=== PATIENT | female | born 1995 | race Hispanic/Latino ===

== ENCOUNTER 2017-01-20 16:40 | Observation (INO) | payer OTHER ==
[~2017-01-20] VITALS: Ht 154.9 cm; Wt 76.1 kg
[~2017-01-20 16:40] MED LIST: PREN-107 PO
[2017-01-20 16:45] VITALS: BP 101/68; PULSE 77; RESP 20; O2SAT 99
[2017-01-20 17:24] LABS: BASOPHILS % (AUTO) 0.3 % (0-3); EOSINOPHILS % (AUTO) 0.3 % (0-5); MONOCYTES % (AUTO) 4.2 % (4-12); Mean Corpuscular Hemoglobin 28.8 pg (27.0-35.0); Mean Corpuscular Volume 86.3 fL (81-100); NEUTROPHILS % (AUTO) 82.3 % (40-74); Platelet Count 283 bil/L (150-400)
[2017-01-20 17:46] LABS: Magnesium 1.8 mg/dL (1.6-2.6)
--- NOTE | 2017-01-20 18:26 | ED.REPORT ---
HPI-Abd Pain F Under 40 Date of Service January 20, 2017 ED Provider: Bradly Saxena DO Patient is a 21 year old female who presents to the ED complaining of diffuse abdominal pain onset last night. Associated symptoms include pain that radiates into her back,nausea, vomiting and diarrhea that has since resolved. She denies . The patient reports that her periods have been irregular, with her last menstrual cycle on 12/18/16 but this pain is worse than her usual cramps. Nursing Notes Stated Complaint: ABDOMINAL PAIN Chief Complaint: Female Abdominal Pain Nursing Notes Reviewed: Yes Allergies: Coded Allergies: No Known Allergies (Unverified Allergy, Unknown, 02/10/14) Miscellaneous Medications ([none]) VIT37/IRON/FOLIC ACID-Expunged Drug, (PRENATA-Expunged Drug, Do Not Renew!) 1 Each Tab.chew 1 EACH PO General Time Seen by MD: 18:25 Chief Complaint Abdominal pain Hx Obtained From: Patient Arrived By: Walk-in Sudden in Onset?: Yes Onset Occurred: Yesterday Symptom Duration: Since onset Location: : Diffuse Radiation: : Back Associated with: Reports: Diarrhea, Nausea, Vomiting Recent Healthcare: No recent doctor visit, No recent hospitalization Past Medical History Past Medical History none reported Past Surgical History none reported Smoking History Never Smoker Social History Alcohol Use: Denies alcohol use Drug Use: Denies drug use Other Social History: Good social support Ambulatory Status Independent Review of Systems Respiratory: Denies: Non-productive cough, Shortness of breath GI: Reports: Abdominal pain, Diarrhea, Nausea, Vomiting Musculoskeletal: Reports: Back pain Complete sys rev & neg: except as marked. Physical Exam Initial Vital Signs Vital Signs (First) Date Time Temp Pulse Resp B/P Pulse Ox O2 Delivery O2 Flow Rate FiO2 01/20/17 16:45 37.2 77 20 101/68 99 Room Air Initial VS: Reviewed General/Constitutional: Awake, Alert Distress / Hydration: Positive: Distress moderate Respiratory / Chest: Atraumatic, Breath sounds NL, Breath sounds = bilat, No respiratory distress Cardiovascular: Heart rate NL, Regular rhythm, Heart sounds NL Abdomen: Atraumatic, Soft Tenderness/Guarding/Rebound: Positive: Tender LUQ..., Tender RUQ... Back: Atraumatic, Full range of motion Head / Eyes: Atraumatic, Normocephalic, PERRL, EOMI Skin: Atraumatic, Color NL, No rash, Warm, Dry Neurologic: Oriented X3, Speech NL, No motor deficits, No sensory deficits Psychiatric: Affect NL, Mood NL Interpretation & Diagnostics Interpretation & Diagnostics: ABDOMEN ULTRASOUND: IMPRESSION: 1. No cholelithiasis or cholecystitis. Dictated by: Sukhdev Seay M.D. on 01/20/2017 at 20:08 Approved by: Sukhdev Seay M.D. on 01/20/2017 at 20:13 Lab Results Interpretation Result Diagram: 01/20/17 1705 01/20/17 1705 Test 01/20/17 17:05 01/20/17 19:30 White Blood Count 15.0th/mm3 (3.8-10.1) Red Blood Count 4.59mil/mm3 (3.90-5.20) Hemoglobin 13.2g/dL (12.0-15.6) Hematocrit 39.6% (35.0-46.0) Mean Corpuscular Volume 86.3fL (81-100) Mean Corpuscular Hemoglobin 28.8pg (27.0-35.0) Mean Corpuscular Hemoglobin Concent 33.3% (32.0-37.0) Red Cell Distribution Width 13.3% (12.3-15.4) Platelet Count 283bil/L (150-400) Neutrophils (%) (Auto) 82.3% (40-74) Lymphocytes (%) (Auto) 12.6% (14-46) Monocytes (%) (Auto) 4.2% (4-12) Eosinophils (%) (Auto) 0.3% (0-5) Basophils (%) (Auto) 0.3% (0-3) Sodium Level 137mEq/L (134-144) Potassium Level 3.8mEq/L (3.5-5.2) Chloride Level 99mEq/L (97-108) Carbon Dioxide Level 22mmol/L (18-29) Blood Urea Nitrogen 13mg/dL (6-20) Creatinine 0.55mg/dL (0.57-1.00) Estimat Glomerular Filtration Rate 198mL/min (>59) Glucose Level 108mg/dL (60-99) Calcium Level 9.4mg/dL (8.5-10.1) Magnesium Level 1.8mg/dL (1.6-2.6) Total Bilirubin 0.3mg/dL (0.0-1.2) Aspartate Amino Transf (AST/SGOT) 20U/L (0-50) Alanine Aminotransferase (ALT/SGPT) 19U/L (0-32) Alkaline Phosphatase 78U/L (25-150) Total Protein 8.3g/dL (6.4-8.4) Albumin 4.2g/dL (3.4-5.0) Lipase 20U/L (13-60) Hold Francois Top Tube Received (Received) Urine Color Yellow (YELLOW) Urine Appearance Hazy (CLEAR,HAZY) Urine pH 6.5 (5.0-8.0) Urine Specific [place] 1.025 (1.003-1.035) Urine Protein Tracemg/dL (NEG,TRACE) Urine Glucose (UA) Negativemg/dL (NEGATIVE) Urine Ketones Negativemg/dL (NEGATIVE) Urine Occult Blood Negative (NEGATIVE) Urine Nitrite Negative (NEGATIVE) Urine Bilirubin Negative (NEGATIVE) Urine Urobilinogen Normalmg/dL (NORMAL) Urine Leukocyte Esterase Trace (NEGATIVE) Urine RBC 0-2/hpf (0-2) Urine WBC 0-5/hpf (0-5) Urine Epithelial Cells Few/hpf (NONE-MOD) Urine Crystals None seen (NONE SEEN) Urine Bacteria Few/hpf (NONE-FEW) Urine Hyaline Casts None/lpf (NONE) Urine Granular Casts None seen (NONE SEEN) Urine Waxy Casts None seen (NONE SEEN) Urine Red Blood Cell Casts None seen (NONE SEEN) Urine White Blood Cell Casts None seen (NONE SEEN) Urine Mucus None seen (None Seen) Urine Trichomonas None seen (NONE SEEN) Urine Yeast None (NONE SEEN) Urinalysis Comment None Urine Culture Reflexed Indicated CT Abd / Pelvis Interpretation IMPRESSION: 1. Acute appendicitis without definite evidence of perforation. Findings discussed with Dr. Saxena on 01/20/17 at 9:40 PM. 2. Small amount of free fluid in the pelvic cul-de-sac appears within physiologic limits. Dictated by: Sukhdev Seya M.D. on 01/20/2017 at 21:37 Approved by: Sukhdev Seay M.D. on 01/20/2017 at 21:43 Interpretation / Wet Read by: Interpret - Radiologist Re-Eval/Medical Decision Med Decision/Clinical Course Med Decision/Clinical Course: Patient has been vomiting, resolved diarrhea, no fever and no chest symptoms. CT showed clear signs of acute appendicitis. Re-Evaluation/Progress : Time of Eval: 21:44 Re-Evaluation/Progress Note: Discussed CT results and plan for admit. The patient understands and agrees to the plan for admit. All questions were addressed. Consultation : Referral / Consult Name: Reji Kelley MD Consulted With: Surgeon Call Returned at: 21:48 Wire Stitcher: Will see patient, Agrees with eval, Agrees with plan, Accepts admit Counseled Regarding: Diagnosis, Lab results, Need for admission Discharge & Departure Primary Impression: Acute appendicitis Acute appendicitis type: unspecified acute appendicitis type Qualified Code: K35.80 - Unspecified acute appendicitis Disposition: ADMITTED TO HOSPITAL Discharge Condition All VS Reviewed: Yes Condition: Stable Referrals: Sharon Strong PA-C (PCP) Nadeem Attestation Portions of this note were transcribed by Annika Issa. I, Dr. Saxena personally performed the history, physical exam and medical decision-making; I reviewed and confirmed the accuracy of the information in the transcribed note. Signed by: Nadeem Lang, 01/20/17 and 2150 copies to: Sharon Strong PA-C, Todd P DO January 20, 2017 18:26 Margaret Issa January 20, 2017 18:56
[2017-01-20] MEDS ORDERED: 0.9% Sodium Chloride 1,000 ML IV ONE (19:25)
[2017-01-20] MEDS ORDERED: HYDROmorphone 1 mg/mL Inj IVPUSH PRN (19:25)
[2017-01-20] MEDS ORDERED: Ondansetron 2 mg/mL 2 mL Inj IVPUSH PRN (19:25)
[2017-01-20 19:47] LABS: APPEARANCE,URINE HAZY (CLEAR,HAZY); COLOR,URINE YELLOW (YELLOW); PH,URINE 6.5 (5.0-8.0)
[2017-01-20 19:48] LABS: OCCULT BLOOD,URINE NEGATIVE (NEGATIVE); UROBILINOGEN,URINE NORMAL (NORMAL)
[2017-01-20] MEDS ORDERED: Iohexol 300 mg/mL 30 mL Inj PO ONE (19:55)
--- NOTE | 2017-01-20 20:14 | DRSVH ---
PROCEDURE: US ABDOMEN, LIMITED ([id number]) INDICATIONS: ruq and luq pain, vomiting TECHNIQUE: Real-time focused scanning was performed of the gallbladder, with image documentation. COMPARISON: None. FINDINGS: No gallstones, gallbladder wall thickening, or pericholecystic fluid. No intrahepatic biliary ductal dilatation. Common bile duct is normal in caliber measuring up to 2 mm. IMPRESSION: 1. No cholelithiasis or cholecystitis. Dictated by: Sukhdev Seay M.D. on 01/20/2017 at 20:08 Approved by: Sukhdev Seay M.D. on 01/20/2017 at 20:13
--- NOTE | 2017-01-20 21:45 | DRSVH ---
PROCEDURE: CT ABDOMEN AND PELVIS WITH CONTRAST ([id number]) INDICATIONS: abdominal pain, leukocytosis, negative US TECHNIQUE: After the administration of oral and intravenous contrast, 5 mm thick sections acquired from the diap hragms to the symphysis. 5 mm thick coronal and sagittal reformats were performed. For radiation do se reduction, the following was used: automated exposure control, adjustment of mA and/or kV accordi ng to patient size. COMPARISON: [facility], , [facility], 01/20/2017, 19:42. FINDINGS: Image quality: Excellent. ABDOMEN: Lung bases: There is mild dependent atelectasis. Heart size is normal. Solid organs: Liver and spleen are normal in size and enhancement. Gallbladder is within normal ivey its without gallstones. Biliary system is non-dilated. Pancreas enhances normally. No adrenal nodu les. Kidneys are normal in size and enhancement, without hydronephrosis. Peritoneum and bowel: Stomach, small bowel, and colon loops are normal in caliber and wall thickness . The appendix is distended, measuring up to 1.3 cm with wall thickening and periappendiceal fat str anding consistent with acute appendicitis. No appendicolith. No periappendiceal free fluid, loculat ed fluid collections or free air. There is a small amount of free fluid in the pelvic cul-de-sac whi ch appears within physiologic limits. The colon is nondistended distally from the level of the mid t ransverse colon to the rectum. Nodes and vessels: No retroperitoneal or mesenteric adenopathy. Aorta and inferior vena cava are no rmal in caliber. Miscellaneous: No ventral hernias. PELVIS: Genitourinary: Bladder wall thickness is normal. The uterus and ovaries appear within normal size l imits for age. Miscellaneous: No inguinal hernias or adenopathy. Bones: No suspicious bony lesions. No vertebral body compression fractures. IMPRESSION: 1. Acute appendicitis without definite evidence of perforation. Findings discussed with Dr. Saxena on 01/20/17 at 9:40 PM. 2. Small amount of free fluid in the pelvic cul-de-sac appears within physiologic limits. Dictated by: Sukhdev Seay M.D. on 01/20/2017 at 21:37 Approved by: Sukhdev Seay M.D. on 01/20/2017 at 21:43
[2017-01-20] MEDS ORDERED: Piperacillin-Tazo 3.375 Gm Inj 3.375 GM in Dextrose 5% Minibag Plus 50 ML IV ONE (21:50)
[2017-01-20 22:05] VITALS: BP 101/54; PULSE 71; RESP 16; O2SAT 99
[2017-01-20 23:18] VITALS: BP 101/54; PULSE 71; RESP 16; O2SAT 99
--- NOTE | 2017-01-20 23:27 | NUR ---
Admit to [facility] Admit from ED. Arrived to floor via stretcher, able to self-transfer to bed w/ no problem. Alert/oriented, pleasant and cooperative. oriented to room, call light, and plan. reports 4/10 RUQ pain that occassionally radiates down to RLQ. States this pain is tolerable, declined offer of pain medication. L wrist PIV patent, SL. Tolerating RA, denies SOB/dyspnea. LS slightly decreased w/ fine crackles in bases. Skin is warm and dry. Afebrile. VSS. NPO at this time, plan for appendectomy in AM. CTM for changes.
[2017-01-20 23:47] VITALS: BP 99/59; PULSE 67; RESP 16; O2SAT 98
[2017-01-21] VITALS (7 sets, daily range): BP systolic 91–121; BP diastolic 51–75; PULSE 68–79; RESP 16–22; O2SAT 98–100
[2017-01-21] MEDS ORDERED: Piperacillin-Tazo 3.375 Gm Inj 3.375 GM in Dextrose 5% Minibag Plus 50 ML IV SCH (06:00)
--- NOTE | 2017-01-21 09:06 | HP ---
[address] [address] HISTORY AND PHYSICAL PATIENT: ALONDRA ANGEL : 1995 MR#: [id number] ADMIT: 01/20/2017 JOB ID: [id number] CHIEF COMPLAINT: Appendicitis. HISTORY OF PRESENT ILLNESS: The patient is a 21-year-old female, who presented to the emergency department this evening due to abdominal pain. The patient states that her pain actually started yesterday evening. It was in the epigastric location. It felt like cramps. She thought maybe she was about to have her period. She was able to get some sleep but starting at noon today it started to get worse. Again, it was felt to be in the epigastric location, and also in her back. She had nausea and vomiting today. She denies any fever but she did have some chills and she did have some loose diarrhea today. She last ate chicken and broth around 4 p.m. this afternoon. Workup in the emergency department tonight included a CBC that showed an elevated white blood count of 15, and abdominal ultrasound that shows a normal gallbladder, and then this is followed by a CT scan that showed acute appendicitis without definite perforation. The appendix was measured 1.3 cm with wall thickening and periappendiceal fat stranding. No appendicolith. I was consulted by the ED physician for evaluation. PAST MEDICAL HISTORY: None. MEDICATIONS: None. ALLERGIES: None. SOCIAL HISTORY: The patient lives in [place]. She is not . She has two daughters. She does not drink or smoke. 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 FAMILY HISTORY: Positive for diabetes and no appendicitis. REVIEW OF SYSTEMS: Positive for chills, epigastric abdominal pain, nausea, vomiting and loose diarrhea today. The patient also reports to having irregular menstrual periods. All other systems reviewed were negative. PHYSICAL EXAMINATION: The patient is currently in the emergency department [facility], in no acute distress. Her BMI is 30.3. The patient is [place]-speaking. Head is normocephalic, atraumatic. There is no scleral icterus. Neck is supple. Heart is regular rate. Lungs are clear. Abdomen is slightly obese. The patient points to the supraumbilical location as the site of her discomfort. However, on palpation, it is mildly tender in the supraumbilical location, also extending to the right lower quadrant. There is no rebound. There is no guarding. Extremities shows no clubbing and no cyanosis. Neurologically, the patient is awake, alert, answers questions, and she is appropriate for her age. LABORATORY EXAMINATION: Tonight showed a white blood count of 15, hematocrit of 39.6, platelet count is 283. Sodium is 137, potassium 3.8, creatinine 0.55, lipase of 20. Her urine is negative. An abdominal ultrasound shows no gallstones or cholecystitis. A CT scan tonight shows acute appendicitis without perforation. ASSESSMENT: This is a 21-year-old female with acute appendicitis. The patient last had chicken and broth around 4 p.m. Discussion was made with the on-call anesthesiologist, who was currently busy working on a GI case in the endoscopy suite, and he recommends that we wait 8 hours before going to surgery. Therefore, I will start her on IV antibiotics and recommend that she undergoes laparoscopic appendectomy tomorrow. This was explained to the patient, and the patient understands and agrees.
--- NOTE | 2017-01-21 09:23 | PCM.PNSURG ---
Subjective Date of Service: January 21, 2017 Date of Service: January 21, 2017 Visit Information: Reason for Visit Appendicitis Surgery/Surgery Date Post-Op Day # Date of Admission: January 20, 2017 at 22:08 Hospital Day # Subjective: Pain has gotten a little better, has not needed pain medication today . Located primarily in the RLQ, radiates to the LLQ. States some nausea. Remains NPO. WBC from admit 15, remains afebrile Objective Vital Sign- Last 8 Hours Date Time Temp Pulse Resp B/P Pulse Ox O2 Delivery O2 Flow Rate FiO2 01/21/17 05:41 36.7 71 16 95/56 100 Room Air Intake and Output- Last 8 Hour 01/21/17 Cumulative From/Thru 07:00 01/20/17 16:45 - 01/21/17 06:02 Intake Total 0 ml 1000 ml Output Total 400 ml 400 ml Balance -400 ml 600 ml Intake Oral 0 ml 0 ml IV Total 1000 ml Output Urine Total 400 ml 400 ml # Bowel Movements 0 0 General: Alert, Oriented X3, Cooperative, No Acute Distress Lungs: Clear to Auscultation, Normal Air Movement Heart: Exam Unremarkable, Regular Rate/Rhythm Abdomen: Soft (Tender to palpation RLQ and LLQ. No ridgidity, no guarding, no masses.) Result Diagram: 01/20/17 1705 01/20/17 170 Diagnostics: . US ABDOMEN, LIMITED IMPRESSION: 1. No cholelithiasis or cholecystitis. Dictated by: Sukhdev Seay M.D. on 01/20/2017 at 20:08 CT ABDOMEN AND PELVIS WITH CONTRAST IMPRESSION: 1. Acute appendicitis without definite evidence of perforation. Findings discussed with Dr. Saxena on 01/20/17 at 9:40 PM. 2. Small amount of free fluid in the pelvic cul-de-sac appears within physiologic limits. Dictated by: Sukhdev Seay M.D. on 01/20/2017 at 21:37 Additional Information: WBC from admit 15. Assessment & Plan Impression Assessment and Plan: 1. Acute appendicitis - Plan for laparoscopic appendectomy today - Remains NPO - Continue IV antibiotics - Continue Zofran Problems: Attending Statement: I agree with Dr. Arita's assessment and plan. Surgery today by Dr. Martinez. SOFIA ARIAT DO January 21, 2017 09:11 Reji Kelley MD January 23, 2017 16:05
[2017-01-21] MEDS ORDERED: Ondansetron 2 mg/mL 2 mL Inj IVPUSH PRN ×3 (11:45→15:10)
[2017-01-21] MEDS ORDERED: Alum-Mag Hydrox-Simeth 30 mL Suspension PO PRN (11:45)
[2017-01-21] MEDS ORDERED: Polyethylene Glycol (PEG) 17 Gm Powder PO PRN (11:45)
[2017-01-21] MEDS ORDERED: fentaNYL-PF 50 mCg/mL 2 mL Inj ONE (11:49)
[2017-01-21] MEDS ORDERED: Glycopyrrolate 0.2 MG/ML 1mL Inj ONE (11:49)
[2017-01-21] MEDS ORDERED: MetoCLOpramide 5 mg/mL 2 mL Inj ONE (11:49)
[2017-01-21] MEDS ORDERED: Ondansetron 2 mg/mL 2 mL Inj ONE (11:49)
[2017-01-21] MEDS ORDERED: Neostigmine 1 mg/mL 10 mL Inj ONE (11:49)
[2017-01-21] MEDS ORDERED: Dexamethasone 4 mg/mL Inj ONE (11:49)
[2017-01-21] MEDS ORDERED: Propofol 10,000 mCg/mL 20 mL Inj ONE (11:49)
[2017-01-21] MEDS ORDERED: Succinylcholine Chloride 20 mg/mL 5 mL Inj ONE (11:49)
--- NOTE | 2017-01-21 11:56 | NUR ---
UrinePregnancy NEG Double checked that pt not currently - test performed, NEG. Awaiting surgery.
--- NOTE | 2017-01-21 13:27 | NUR ---
Off Unit to OR Pt off unit to OR via carmenza at 1327. Report given to Delphine prior to pt pickup. A&Angie3, FRANCO, VSS, Pain tolerable, IV SL, SCDs with patient, Void prior to leaving, Jewelry left behind in pt room. Urine NEG, Consent signed, Chart with pt. Addendum: 01/21/17 at 1637 by GEORGE ADORNO RN Return to [facility] Unit, 1016, from PACU at 1625. Arrived via carmenza, Tonia&Angie3 - groranjany, pain present, pt up to BR, IV patent and infusing remaining Zosyn, Offered clear liquids - is aware to start slow and advance as tolerated, VSS, SCDs on, Educated pt of moving post laproscopic procedure. 3x lap sites with bandaids, CDI. Call light in reach. Addendum: 01/21/17 at 1637 by GEORGE ADORNO RN Report received from Clem Barakat RN prior to pt return.
[2017-01-21] MEDS ORDERED: Lactated Ringer's 1,000 ML IV ONE (13:48)
[2017-01-21] MEDS ORDERED: Lactated Ringer's 500 ML IV PRN (14:07)
[2017-01-21] MEDS ORDERED: Lactated Ringer's 1,000 ML IV SCH (14:07)
[2017-01-21] MEDS ORDERED: HYDROmorphone 1 mg/mL Inj IVPUSH PRN (14:10)
[2017-01-21] MEDS ORDERED: EPHEDrine Sulfate 50 mg/mL Inj IVPUSH PRN (14:10)
[2017-01-21] MEDS ORDERED: Labetalol 5 mg/mL 4 mL Inj IV PRN (14:10)
[2017-01-21] MEDS ORDERED: Phenylephrine 10,000 mCg/mL Inj IVPUSH PRN (14:10)
[2017-01-21] MEDS ORDERED: Atropine 0.4 mg/mL Inj IVPUSH PRN (14:10)
[2017-01-21] MEDS ORDERED: MetoCLOpramide 5 mg/mL 2 mL Inj IVPUSH PRN ×2 (14:10→15:10)
[2017-01-21] MEDS ORDERED: Bupivacaine-MPF 0.5% 30 mL Inj INFILTRATE ONE (14:13)
--- NOTE | 2017-01-21 14:32 | PCM.HPANE ---
Patient Data Surgeon Admitting Provider:Reji Kelley MD Attending Provider:Reji Kelley MD Primary Care Physician:[facility] Sommer Other Provider:Gypsy Vernon Anesthesia Reason for Visit Appendicitis Ht/WT & BMI Height (Feet): 5 Height (Inches): 1.00 Weight (Kilograms): 78.600 Body Mass Index 32.72 Allergies Coded Allergies: No Known Allergies (Unverified Allergy, Unknown, 02/10/14) Past Anesthesia History Anesthesia History: Denies:: Abnormal Airway, Anesthesia Reactions, Difficult Intubation, Fam Anesthesia Reaction, Fam Malignant Hypertherm, Malignant Hyperthermia Diabetes History Hx Diabetes?: No MRSA MRSA: No Medications Discontinued Reported Medications VIT37/IRON/FOLIC ACID-Expunged Drug, (PRENATA-Expunged Drug, Do Not Renew!)1 Each Tab.chew1 Each PO 02/10/13 [none] No Conflict Check 01/20/11 History History of ENT Problems?: No HEENT History: Denies:: Abnormal Airway Cataracts Difficult Intubation Dysphagia Glaucoma Hearing Problem Sinus Problem TMJ Denture Type: None Teeth Condition: Within Normal Limits Hx of Heart Problems?: No Cardiovascular History: Denies:: AICD Abdominal Aortic Aneurism Atrial Fibrillation Cardiac Surgery Chest Pain Congestive Heart Failure Coronary Artery Disease Edema Heart Murmur Hypertension Irregular Heartbeat Pacemaker Peripheral Vascular Rheumatic Fever Thrombophlebitis Valvular Heart Disease Hx of Respiratory Problem?: No Respiratory History: Denies:: Asthma COPD Chest Surgery Cough Dyspnea Emphysema Hemoptysis Oxygen Administration Pneumonia Pulmonary Embolism Tuberculosis Use of C-PAP Machine Use of Inhalers / NEBS Hx Neurologic Problems?: No Neurological History: Denies:: Alzheimer's Disease CVA Dementia Dizziness Headaches Multiple Sclerosis Parkinson's Disease Peripheral Neuropathy Seizures TIA Hx of GI Problems?: No Gastrointestinal History: Denies:: Cirrhosis Diverticulitis Gall Bladder Disease Gastroesphageal Reflux Gastrointestinal Bleeding Heartburn Hepatitis Hiatal Hernia Liver Disease Rectal Bleeding Hx of Problems?: No Genitourinary History: Denies:: HX of Hemodialysis Kidney Stones Urinary Tract Infection HX of Peritoneal Dialysis: No Female Hx: Denies:: Currently Endometriosis Pelvic Inflammatory Problems with Breasts? Skin History: Denies:: History Skin Disorders? Pressure Ulcers Hx Musculoskeletal Problems?: No Musculoskeletal History: Denies:: Back Injury Degenerative Joint Fibromyalgia Joint Replacement Musculoskeletal Trauma Myasthenia Gravis Osteoarthritis Rheumatoid Arthritis Systemic Lupus Hx of Psycho/Social Problems?: No Psycho Social History: Denies:: Anxiety Bipolar Disorder Hx Depression Suicide Attempt Hx Surgeries?: No Hx Any Other Health Problems?: No Other History: Denies:: Cancer Endocrine Disease Hospitalization Thyroid Disease History Blood Transfusions: Denies:: Accept Blood Products? Blood Transfuse Reaction Blood Transfusions Hx Diabetes: No Hx Alcohol Use: NoHx Substance Use: No Smoking Status: Never Smoker Have You Smoked inLast 12 mo: No Stop/Bang Risk Assessment Category Category 1A: Patient has history of documented sleep apnea, and HAS NOT received any narcotic, sedative or anesthesia administration during this stay. Category 1B: Patient has history of documented sleep apnea, and HAS received any narcotic , sedative or anesthesia administration during this stay Category 2: Patient has SUSPECTED Obstructive Sleep Apnea, and HAS received any narcotic , sedative or anesthesia administration during this stay. Category 3: Patient has SUSPECTED Obstructive Sleep Apnea and HAS NOT received narcotic, sedative or anesthesia administration during this stay. Category 4: Outpatient in Procedural Areas with known sleep apnea or who screen positive for High Risk via the STOP/BANG questionnaire. Exam Exam Vital Signs Vital Signs Date Time Temp Pulse Resp B/P Pulse Ox O2 Delivery O2 Flow Rate FiO2 01/21/17 05:41 36.7 71 16 95/56 100 Room Air General Appearance: Alert, Oriented X3, Cooperative, No Acute Distress HEENT/AIRWAY: MP 2, Neck Movement (FROM), Mouth Opening (3 FBMO) Lungs: Clear to Auscultation, Normal Air Movement Heart: Exam Unremarkable, Regular Rate/Rhythm Meds/Labs/Diagnostics Admission Meds Current Medications Sodium Chloride (Normal Saline) 1,000 ml @ 0 mls/hr Q0M ONCE IV Last administered on 01/20/17 19:28; Start 01/20/17 at 19:25; Stop 01/20/17 at 19:26 ; Status DC Iohexol 9000 mg 9,000 mg ONCE ONCE PO Last administered on 01/20/17 20:10; Start 01/20/17 at 19:55; Stop 01/20/17 at 19:56; Status DC Piperacillin Sod/ Tazobactam Sod 3.375 gm/Dextrose/ Water 50 ml @ 100 mls/hr ONCE ONCE IV Last administered on 01/20/17 22:07; Start 01/20/17 at 21:50; Stop 01/20/17 at 22:19; Status DC Piperacillin Sod/ Tazobactam Sod/ Dextrose/Water (Zosyn 3.375 Gm Inj/D5W Minibag Plus) 50 ml @ 12.5 mls/hr Q8H IV Last administered on 01/21/17t 05:40 ; Start 01/21/17 at 06:00 Labs Test 01/20/17 17:05 01/20/17 19:30 White Blood Count 15.0th/mm3 (3.8-10.1) Red Blood Count 4.59mil/mm3 (3.90-5.20) Hemoglobin 13.2g/dL (12.0-15.6) Hematocrit 39.6% (35.0-46.0) Mean Corpuscular Volume 86.3fL (81-100) Mean Corpuscular Hemoglobin 28.8pg (27.0-35.0) Mean Corpuscular Hemoglobin Concent 33.3% (32.0-37.0) Red Cell Distribution Width 13.3% (12.3-15.4) Platelet Count 283bil/L (150-400) Neutrophils (%) (Auto) 82.3% (40-74) Lymphocytes (%) (Auto) 12.6% (14-46) Monocytes (%) (Auto) 4.2% (4-12) Eosinophils (%) (Auto) 0.3% (0-5) Basophils (%) (Auto) 0.3% (0-3) Sodium Level 137mEq/L (134-144) Potassium Level 3.8mEq/L (3.5-5.2) Chloride Level 99mEq/L (97-108) Carbon Dioxide Level 22mmol/L (18-29) Blood Urea Nitrogen 13mg/dL (6-20) Creatinine 0.55mg/dL (0.57-1.00) Estimat Glomerular Filtration Rate 198mL/min (>59) Glucose Level 108mg/dL (60-99) Calcium Level 9.4mg/dL (8.5-10.1) Magnesium Level 1.8mg/dL (1.6-2.6) Total Bilirubin 0.3mg/dL (0.0-1.2) Aspartate Amino Transf (AST/SGOT) 20U/L (0-50) Alanine Aminotransferase (ALT/SGPT) 19U/L (0-32) Alkaline Phosphatase 78U/L (25-150) Total Protein 8.3g/dL (6.4-8.4) Albumin 4.2g/dL (3.4-5.0) Lipase 20U/L (13-60) Hold Francois Top Tube Received (Received) Urine Color Yellow (YELLOW) Urine Appearance Hazy (CLEAR,HAZY) Urine pH 6.5 (5.0-8.0) Urine Specific [place] 1.025 (1.003-1.035) Urine Protein Tracemg/dL (NEG,TRACE) Urine Glucose (UA) Negativemg/dL (NEGATIVE) Urine Ketones Negativemg/dL (NEGATIVE) Urine Occult Blood Negative (NEGATIVE) Urine Nitrite Negative (NEGATIVE) Urine Bilirubin Negative (NEGATIVE) Urine Urobilinogen Normalmg/dL (NORMAL) Urine Leukocyte Esterase Trace (NEGATIVE) Urine RBC 0-2/hpf (0-2) Urine WBC 0-5/hpf (0-5) Urine Epithelial Cells Few/hpf (NONE-MOD) Urine Crystals None seen (NONE SEEN) Urine Bacteria Few/hpf (NONE-FEW) Urine Hyaline Casts None/lpf (NONE) Urine Granular Casts None seen (NONE SEEN) Urine Waxy Casts None seen (NONE SEEN) Urine Red Blood Cell Casts None seen (NONE SEEN) Urine White Blood Cell Casts None seen (NONE SEEN) Urine Mucus None seen (None Seen) Urine Trichomonas None seen (NONE SEEN) Urine Yeast None (NONE SEEN) Urinalysis Comment None Urine Culture Reflexed Indicated Plan Impression Patient chart reviewed, patient interviewed and anesthestic plan with risks, benefits, and alternatives discussed, and informed consent obtained. NPO per Anesth. Guidelines: Yes ASA Physical Status: ASA2 Mod Systemic Disease Anesthetic Plan: GA Bene/Risks/Altern/Consents: Yes HP Complete Prior to Induction: Yes Esvin Aguilera MD January 21, 2017 13:40
--- NOTE | 2017-01-21 14:46 | PROG NOTE ---
[address] [address] PROGRESS NOTE PATIENT: ALONDRA ANGEL : 1995 MR#: [id number] ADMIT: 01/20/2017 JOB ID: [id number] DATE: 01/21/2017 SUBJECTIVE: The patient is seen in followup. She was admitted last night by Dr. Nic Kelley. She presented with right lower quadrant pain. She initially had an abdominal CT scan that was non diagnosis and then a CT scan was obtained showing acute appendicitis. She had eaten and the operation would have to occur in the middle of the night and was elected to admit her, put her on antibiotics and reconsider therapeutic choices this morning. This morning she says she is feeling better, but she still is having right lower quadrant pain. She has never had this before. She has never had abdominal operations. DATE: PAST MEDICAL HISTORY: ILLNESSES: None. MEDICATIONS: None. ALLERGIES TO MEDICATIONS: None. SOCIAL HISTORY: She has two daughters, ages two and five. Her mother is with her children. HABITS: Tobacco and alcohol: None. FAMILY HISTORY: Is noncontributory. REVIEW OF SYSTEMS: Otherwise negative. Denies nausea or vomiting. PHYSICAL EXAMINATION: Pleasant, alert, no distress. Appearing stated age. Temperature 36.7, brachial blood pressure 95/56, pulse 71, respiratory rate 16, O2 sat room air 100%. HEENT: PERRLA, EOMI. No scleral icterus. Neck: No masses. Trachea midline. Lymph nodes: No cervical or scalene adenopathy. Lungs: Clear. Cardiac examination: Regular rhythm. No murmurs or gallops appreciated. Abdomen: Soft. She does have right lower quadrant tenderness. Extremities: No edema. Skin: Nonjaundiced. Neurologic examination: Appropriate affect. No obvious cranial nerve deficits. Moves all extremities. Gait not tested. LABORATORY RESULTS: From yesterday white blood cell count 15.0, hematocrit is 39.6, platelet count 283,000. Bedside urine in the emergency department was negative. Electrolytes, creatinine are normal. CT scan is personally reviewed by myself. Please see report by Dr. Kenneth Seay. IMPRESSION: Acute appendicitis. I discussed options with the patient, which include operative management versus non operative management with antibiotics. I discussed a laparoscopic, possible open appendectomy. I discussed potential complications including, but not limited to, bleeding, postoperative infection and injury to adjacent organs such as the small bowel, colon and ureter. I also discussed non operative management with antibiotics. I discussed the typical recovery. I discussed failure of antibiotics leading to a delayed operation or abscess. After discussing options, and risks of both options with the patient, she has elected to proceed with operative management. We will proceed with a laparoscopic appendectomy, possible open appendectomy today and signed consent is obtained. The patient is seen for decision to operate.
[2017-01-21] MEDS ORDERED: Sodium Chloride LOK Flush 10 mL Syringe IVFLUSH PRN (15:10)
[2017-01-21] MEDS: fentaNYL-PF 50 mCg/mL 2 mL Inj IVPUSH PRN ×3 (15:22→16:10)
--- NOTE | 2017-01-21 17:06 | NUR ---
Social Work Note: Screen Note Data& Assessment: EMR reviewed. Patient is a 21 year old female admitted on 01/20/17 for Appendicitis. Pt has Tanmay RAMIREZ for insurance coverage and goes to [facility] for primary care. Pt lives in [place] and is independent at baseline. Pt is currently independent in her room. No discharge needs identified at this time. SW to continue to follow if any needs arise. Plan: Anticipated discharge home via POV when medically ready. No discharge needs identified at this time. SW to continue to follow if any needs arise. Hanh Kiser, NATALI, ACM
--- NOTE | 2017-01-21 17:06 | PCM.ANEP1 ---
Post Anesthesia PACU Phase 1 Assessment Vital Signs Vital Signs Date Time Temp Pulse Resp B/P Pulse Ox O2 Delivery O2 Flow Rate FiO2 01/21/17 16:30 36.4 73 16 121/75 98 Room Air 01/21/17 15:25 70 18 101/51 98 Room Air 01/21/17 15:10 68 20 100/60 100 Simple Mask 10 01/21/17 15:05 77 20 91/53 100 Simple Mask 10 01/21/17 15:00 36.4 77 22 112/62 100 Simple Mask 10 Anesthetic Administered: GA Level of Alertness: Awake, talking FRANCO's with Equal Strength: Yes Pain: Yes Pain Scale Score: 9 Nausea or Vomiting: No CV Function and Hydration: No Airway Device: Oxygen Delivery: Room Air Lungs: Clear to Auscultation, Normal Air Movement Dermatome Level: Full Sensation PACU Phase 2 Assessment Complications: No Follow up Care: No Patient Instructions Provided: N/A Esvin Aguilera MD January 21, 2017 17:06
[2017-01-21] MEDS: HYDROcodone-APAP 5-325 mg Tablet PO PRN (20:14)
[2017-01-22 00:20] VITALS: BP 103/62; PULSE 73; RESP 16; O2SAT 98
--- NOTE | 2017-01-22 00:55 | NUR ---
Pain At start of shift Pt reported pain 4/10 and stated tolerable and refused offer of pain meds. Pt up to BR and tolerating well. Pt was going to D/C home, saline locked her IV as she was tolerating PO. 3 hours into this shift, Pt stated she was having 7-8/10 pain, she was wincing. Accepted vicodin per PRN orders with + effects. Spoke to surgeon and decided Pt should stay tonight and D/C in the AM. Pt ok with this. Slept well, pain controlled
[2017-01-22 05:50] VITALS: BP 103/63; PULSE 83; RESP 16; O2SAT 98
--- NOTE | 2017-01-22 07:27 | PCM.PNSURG ---
Subjective Visit Information: Reason for Visit Appendicitis Surgery/Surgery Date Post-Op Day # Date of Admission: January 20, 2017 at 22:08 Hospital Day # Subjective: feels better after surgery, took 1 pain pill so far, no n/v overnight Objective Objective Arousable in bed Abd: soft, dressings x3 intact Vital Sign- Last 8 Hours Date Time Temp Pulse Resp B/P Pulse Ox O2 Delivery O2 Flow Rate FiO2 01/22/17 05:50 36.8 83 16 103/63 98 Room Air 01/22/17 00:20 36.8 73 16 103/62 98 Room Air Intake and Output- Last 8 Hour 01/22/17 Cumulative From/Thru 07:00 01/20/17 16:45 - 01/22/17 06:47 Intake Total 290 ml 1886 ml Output Total 250 ml 790 ml Balance 40 ml 1096 ml Intake Oral 150 ml 350 ml IV Total 140 ml 1536 ml Output Urine Total 250 ml 780 ml Estimated Blood Loss 10 ml # Voids 1 # Bowel Movements 1 1 Result Diagram: 01/20/17 1705 01/20/17 1705 Assessment & Plan Impression POD #1 s/p lap appy Clinically doing well Problems: Plan Home today F/U with Dr. Martinez or surgical PA in 1-2 weeks Rx: hydrocodone (#8) Reji Kelley MD January 22, 2017 07:27
--- NOTE | 2017-01-22 07:29 | PCM.DISURG ---
Surgical Discharge Instruction Date of Service January 22, 2017 Dates of Hospitalization Date of Hospital Admission January 20, 2017 at 22:08 Providers Admitting Physician: Reji Kelley MD Primary Care Physician: Eric Mobley-Yanni Sommer Attending Physician: Reji Kelley MD Discharge Diagnosis Discharge Diagnosis Appendicitis s/p lap appendectomy Diet Discharge Diet: No restrictions Activity Discharge Activity-General: Balance rest and activity, Activity as pain allows , Activity as energy allows, No driving while taking narcotic Dressing and Incisional Care Dressing Care: Keep dressing clean, dry & intact, Allow Steri Stripes to fall off Hygiene: May shower Additional Instructions Discharge Instructions Rx: hydrocodone (#8) Follow Up Plan Follow-up Provider (F9): Hawa Thurman PAC Follow-up appointment: Weeks (1-2) Call your provider for: Fever, Shortness of breath, Increasing abdominal pain, Vomiting, Wound redness, Discharge @ incision, pus discharge Reji Kelley MD January 22, 2017 07:28
--- NOTE | 2017-01-22 07:51 | OP ---
[address] [address] OPERATIVE REPORT PATIENT: ALONDRA ANGEL : 1995 MR#: [id number] ADMIT: 01/20/2017 JOB ID: [id number] DATE OF SURGERY: 01/21/2017 PREOPERATIVE DIAGNOSIS(ES): Appendicitis. POSTOPERATIVE DIAGNOSIS(ES): Acute suppurative appendicitis. OPERATION: Laparoscopic appendectomy. SURGEON: Pablo Martinez MD RESEARCH GROUP DIRECTOR: Harvinder Pablo PA-C INDICATIONS: The patient is a 21-year-old female who came in yesterday evening with abdominal pain that started two days ago. The pain was epigastric in location. She had an ultrasound looking for gallstones that was normal, and then a CT scan of her abdomen demonstrated appendicitis. She had recently eaten. She was started on IV antibiotics and then scheduled for a laparoscopic appendectomy today after discussing treatment options and potential complications. FINDINGS: She had acute suppurative appendicitis. Both the appendix and the mesoappendix were edematous and distended. The base of the appendix was normal. The terminal ileum and ascending colon appeared normal. There is no evidence of rupture. DESCRIPTION OF PROCEDURE: At the beginning and end of the operation, the SCOAP checklist was completed. A general endotracheal anesthetic was induced. A Adame catheter was inserted and was removed at the end of the operation. She had on pneumatic hose. Using ChloraPrep, she was prepped and draped in usual fashion. All trocar sites were infiltrated with 0.5% plain bupivacaine. An infraumbilical incision was made. The abdominal cavity was entered, a cannula inserted. Under direct visualization, 5 mm ports were placed in the left lower quadrant in the lower midline. The appendix was identified. The terminal ileum and fat pad Treves were adhered to it, and these adhesions were taken down bluntly. A window was made at the base of the appendix between the appendix and the mesoappendix, and then using a laparoscopic LESLIE with a visceral load, the appendix was divided. As stated above, the mesoappendix was very thickened, and so I used a vascular stapler to divide the mesoappendix. The specimen was placed in a specimen bag. The staple lines were inspected. They appeared secure. There was no bleeding. The right lower quadrant pelvis was irrigated with saline and aspirated. The specimen bag was removed through the umbilical port. The umbilical fascial incision was closed with 0-Vicryl. Trocars were removed without evidence of bleeding. Skin incisions were closed subcuticular 4-0 Vicryl. Steri-Strips and Band-Aids were applied. Estimated blood loss less than 10 cc. There were no apparent complications. The final sponge, needle, and instrument counts were announced as correct, and the patient was returned to recovery room in stable condition.
[2017-01-22 08:35] VITALS: BP 123/71; PULSE 75; RESP 18; O2SAT 99
[2017-01-22] MEDS: HYDROcodone-APAP 5-325 mg Tablet PO PRN (08:38)
--- NOTE | 2017-01-22 12:00 | NUR ---
Discharge Pt left with family in stable condition with all belongings at 1150, IV d/c'd. prescriptions given, instructions for scheduling follow up appointments given.
--- NOTE | 2017-01-23 18:53 | PCM.DC.SUR ---
Discharge Summary Date of Service: Date of Hospital Admission: January 20, 2017 at 22:08 Date of Operation(s): 01/21/2017 Date of Discharge: 01/22/2017 Diagnosis at Time of Discharge Acute suppurative appendicitis Problems: Operation Laparoscopic appendectomy Brief History and Physical: The patient is a 21-year-old female who came in with abdominal pain that started two days prior to admission. The pain was epigastric in location. She had an ultrasound looking for gallstones that was normal, and then a CT scan of her abdomen demonstrated appendicitis. She was started on IV antibiotics and then scheduled for a laparoscopic appendectomy. Consultants: None Hospital Course: The patient was admitted with equivocal findings on ultrasound. CT scan was obtained which was interpreted as appendicitis. The patient had eaten and would not be able to have had an operation until midnight, antibiotics were initiated and the operation was scheduled for the following day. On the patient 's second hospital day she underwent the above-mentioned operation without complication. She was stable for discharge the following morning. At the time of discharge she was having no pain and had only taken 1 pain tablet, she had no nausea or vomiting, her wounds were dry and intact, she was ambulating without assistance, and felt safe to be discharged from the hospital. Pathology: Pending Disposition: The patient was discharged to home on her first postsurgical day. Follow-up Plan: She will follow-up in the office in one to 2 weeks. No Active Prescriptions or Reported Meds copies to: [facility] Hakeem Aviles PA-C January 23, 2017 18:53
--- NOTE | 2017-01-24 15:44 | PATH ---
SURGICAL PATHOLOGY Attending Physician:Dinesh Venegas CASE STATUS: Signed Out PATIENT NAME: ALONDRA SERRANO PID: [id number] : 1995 DATE COLLECTED:01/21/2017 00:00 SPECIMEN: Appendix CLINICAL HISTORY: ACUTE APPENDICITIS 1). APPENDIX FINAL DIAGNOSIS: 1.APPENDIX: ACUTE APPENDICITIS. ICD10 K35.80 GROSS DESCRIPTION: The specimen is received in one formalin filled container labeled with the patient's name, sublabeled "appendix" and consists of one cylindrical loya appendix measuring 8.5 x 1.1 x 1.1 CM. The serosal surface is light loya, smooth and glistening. There is a large amount of attached fatty tissue. Section reveals the wall to be thickened to 0.2-0.3 CM. The lumen contains a light doe semisolid to red-loya friable material. [employer] sections are submitted in one cassette. 01/22/2017 DAC MICRO DESCRIPTION: See diagnosis. ICD-9 CODES: CPT CODES: 1: 32057 Electronically Signed Out Edgar Dial MD [facility] [address], [place] [address] Technical component performed at [facility], [address] [place] [address] Ave[address], [place], [address]
== END 2017-01-22 11:50 | disposition home or self-care (01) ==
LOC: SED 16:40 → OSC 22:08
PROVIDERS: ADMIT Surgery; ATTEND Surgery
DX: K35.80 Unspecified acute appendicitis (principal)
CPT/HCPCS: 36415; 44970; 74177; 76705; 80053; 81000; 83690; 83735; 85025; 87086; 87088; 88304; 96361; 96365; 96366; 96375; 99285; G0378; J0330; J1100; J1170; J1885; J2405; J2543; J2710; J2765; J3010; J7030; J7120; Q9967